=== PATIENT | female | born 1990 ===

== ENCOUNTER 2025-04-18 11:08 | Outpatient (CLI) | payer OTHER | END 2025-04-18 11:09 | disposition home or self-care (01) | LOC: MAMO-SONO 11:08 | PROVIDERS: ATTEND Obstetrics & Gynecology | DX: R22.41 Localized swelling, mass and lump, right lower limb (principal); Z83.0 Family history of human immunodeficiency virus [HIV] disease ==

== ENCOUNTER 2025-08-13 07:00 | Day surgery (SDC) | payer OTHER ==
[2025-08-06 10:03] VITALS: BP 106/73
[2025-08-06 10:49] LABS: BASO % 0.4 % (0.1-1.2); EOS # 0.06 (0.04-0.54); EOS % 1.3 % (0.7-7.0); LYMPH # 1.44 (1.18-3.74); LYMPH % 30.3 % (19.3-53.1); MEAN PLATELET VOLUME 11.00 fl (9.4-12.4); MONO # 0.35 (0.24-0.82); MONO % 7.4 % (4.7-12.5); NEUT # 2.87 (1.56-6.13); NEUT % 60.2 % (34.0-71.1); RED CELL DISTRIBUTION WIDTH 12.3 % (11.6-14.4)
[2025-08-06 10:50] LABS: URINE APPEARANCE Clear; URINE BILIRRUBIN Negative (NEGATIVE); URINE BLOOD Negative; URINE COLOR Yellow; URINE GLUCOSE Negative (NEGATIVE); URINE KETONE Negative (NEGATIVE); URINE LEUKOCYTE Trace; URINE NITRATE Negative; URINE PROTEIN Negative (NEGATIVE); URINE UROBILINOGEN 1.0 E.U./dl
[2025-08-06 10:57] LABS: URINE BACTERIA 2115.3 uL (0.0-1933); URINE EPITHELIAL CELLS 35.9 uL (0.0-38.8); URINE RBC 5.7 uL (0.0-20.8); URINE WBC 10.3 uL (0.0-23.2)
[2025-08-06 11:00] LABS: URINE CAST 0.29 uL (0.0-1.40)
[2025-08-06 11:24] LABS: INR 0.99
[2025-08-06 11:36] LABS: ALT/SGPT 26.0 U/L (12-78); AST/SGOT 13.0 U/L (15-37); BILIRUBIN TOTAL 1.39 mg/dL (0.3-1.2); BUN CREA RATIO 13.0 (7.0-25.0); CREATININE SERUM 0.61 mg/dL (0.55-1.02); GFR 110.98; GLOBULINA 3.0 G/DL (2.4-3.5); GLUCOSE FASTING 82.0 mg/dL (65-100); OSMOLALITY SERUM 281.0 MOSM/KG (275-295)
[~2025-08-13] VITALS: Ht 149.9 cm; Wt 46.7 kg
[2025-08-13] MEDS ORDERED: CEFAZOLIN SODIUM 1,000 MG VIAL ONE (08:31)
[2025-08-13] MEDS ORDERED: LIDOCAINE HCL 1% 20 ML VIAL IJ ONE (09:34)
[2025-08-13] MEDS ORDERED: CEFAZOLIN SODIUM 1,000 MG VIAL IV SCH (10:45)
[2025-08-13 14:01] VITALS: BP 91/56; O2SAT 100
== END 2025-08-13 13:20 | disposition home or self-care (01) ==
LOC: CIR.AMB 07:00
PROVIDERS: ATTEND Specialist
DX: D17.24 Benign lipomatous neoplasm of skin and subcutaneous tissue of left leg (principal); R22.2 Localized swelling, mass and lump, trunk